=== PATIENT | male | born 1985 | race Caucasian/White ===

== ENCOUNTER 2024-03-31 16:00 | Outpatient (CLI) | payer BC, SELFPAY ==
--- NOTE | ~2024-03-31 | MR_ITS ---
MRI of the left elbow Clinical history: Pain TECHNIQUE: Proton-density and proton-density fat-sat images were acquired in the axial, coronal, and sagittal planes. FINDINGS: Ulnar collateral ligament is intact. Radial collateral ligament and the lateral ulnar colla teral ligament are intact. There is severe tendinosis of the common extensor tendon origin at the lat eral epicondyle of the humerus. Common flexor tendon origin is intact. Bone marrow signals are unremarkable. No articular abnormality seen. No significant joint effusion. Biceps, brachialis, and triceps tendons are intact. Visualized musculature unremarkable. No soft tiss ue mass or fluid collection seen. IMPRESSION: Severe tendinosis of the common extensor tendon origin at the lateral portion of the humerus. Reviewed, dictated and finalized at location M. IMPRESSION: Severe tendinosis of the common extensor tendon origin at the lateral portion o f the humerus.
== END 2024-03-31 16:01 ==
LOC: MICIMG 16:02
PROVIDERS: Visit Provider Orthopaedic Surgery
DX: M25.522 Pain in left elbow (principal); M77.8 Other enthesopathies, not elsewhere classified
CPT/HCPCS: 73221